=== PATIENT | female | born 1960 | race Caucasian/White ===

== ENCOUNTER 2016-11-07 11:30 | Emergency (ER) | payer BC ==
[2016-11-07 11:47] VITALS: TEMP 98.2; BMI 42.7
[2016-11-07] MEDS ORDERED: cloNIDine HCL 0.1 MG TABLET PO ONE (12:12)
[2016-11-07] MEDS ORDERED: LORazepam 1 MG TABLET PO ONE (12:13)
[2016-11-07] MEDS ORDERED: cloNIDine HCL 0.1 MG TABLET ONE (12:45)
[2016-11-07] MEDS ORDERED: LORazepam 0.5 MG TABLET ONE (12:45)
--- NOTE | 2016-11-07 14:35 | PDOC ---
History of Present Illness - General Chief Complaint: Nasal Bleeding Stated Complaint: SUDDEN NASAL BLEEDING Time Seen by Provider: 11/07/16 11:50 - History of Present Illness Initial Comments: 11/07/16 14:30 Patient is a 56-year-old female with a past medical history of hypertension presenting to the ED today with a nasal bleed. Patient states that the bleeding started at around 1100 this morning while she was in the shower. She was able to stop some bleeding with direct pressure and tissues however there was a large volume of blood and the patient became nervous and came to the emergency room. In in triage patient states that she received 4 x 4's which they packed her left nasal passage with. It was also discovered in triage that her blood pressure was 210/120. This is high for her to the patient. She states she is usually compliant with her blood pressure medication. Patient denies trauma to the nose. Denies fevers chills weight change fatigue chest pain palpitations edema shortness of breath dyspnea nausea vomiting diarrhea. Past History - Past Medical History Allergies/Adverse Reactions: Allergies Allergy/AdvReac Type Severity Reaction Status Date / Time No Known Allergies Allergy Verified 11/07/16 11:36 Home Medications: Ambulatory Orders Amlodipine Besylate [Norvasc -] 5 mg PO HS #10 tablet 11/08/16 Nebivolol HCl [Bystolic] 10 mg PO DAILY #10 tablet 11/08/16 Olmesartan Medoxomil [Benicar -] 40 mg PO HS #10 tablet 11/08/16 Anemia: Yes Dialysis: Yes HTN: Yes Suicide Attempt (Hx): No - Psycho/Social/Smoking Cessation Hx Anxiety: No Suicidal Ideation: No Smoking History: Never smoked Hx Alcohol Use: No Drug/Substance Use Hx: No Substance Use Type: None *Physical Exam - Vital Signs Last Vital Signs Temp Pulse Resp BP Pulse Ox 98.2 F 104 H 19 197/116 99 11/07/16 11:37 11/07/16 11:37 11/07/16 11:37 11/07/16 11:37 11/07/16 11:37 - Physical Exam Comments: 11/07/16 14:32 GENERAL: Well developed, well nourished. Awake and alert. No acute distress. HEENT: Normocephalic, atraumatic. PERRLA, EOMI. No conjunctival pallor. Sclera are non- icteric. Moist mucous membranes. Oropharynx shows dried blood, but no active dripping of blood. NOSE: Bright red blood present in the L nasal passage. Numerous 4x4's present in the passage. R nostril shows no blood. No pain on palpation. NECK: Supple. Full ROM. No JVD. Carotid pulses 2+ and symmetric, without bruits. No thyromegaly. No lymphadenopathy. CARDIOVASCULAR: Regular rate and rhythm. (+) systolic murmurs III/ loudest at the R second intercostal space at the base. No rubs, or gallops. Distal pulses are 2+ and symmetric. PULMONARY: No evidence of respiratory distress. Lungs clear to auscultation bilaterally. No wheezing, rales or rhonchi. ABDOMINAL: Soft. Non-tender. Non-distended. No rebound or guarding. No organomegaly. Normoactive bowel sounds. MUSCULOSKELETAL Normal range of motion at all joints. No bony deformities or tenderness. No CVA tenderness. EXTREMITIES: No cyanosis. No clubbing. No edema. No calf tenderness. SKIN: Warm and dry. Normal capillary refill. No rashes. No jaundice. NEUROLOGICAL: Alert, awake, appropriate. Cranial nerves 2-12 intact. No deficits to light touch and temperature in face, upper extremities and lower extremities. No motor deficits in the in face, upper extremities and lower extremities. Normoreflexic in the upper and lower extremities. Normal speech. Toes are down- going bilaterally. Gait is normal without ataxia. PSYCHIATRIC: Cooperative. Good eye contact. Appropriate mood and affect. ED Treatment Course - Medications Given in the ED: ED Medications Discontinued Medications Generic Name Dose Route Start Last Admin Trade Name Channing PRN Reason Stop Dose Admin Clonidine 0.1 mg 11/07/16 12:12 11/07/16 12:49 Catapres - PO 11/07/16 12:13 0.1 mg ONCE ONE Administration Lorazepam 1 mg 11/07/16 12:13 11/07/16 12:49 Ativan - PO 11/07/16 12:14 Not Given ONCE ONE Medical Decision Making - Medical Decision Making 11/07/16 11:10 Patient is a 56-year-old female with hypertension presenting to the ED today with epistaxis of her left nostril. The cause of the bleeding seems to be atraumatic. Bleeding was controlled with 4 x 4's. Direct pressure is placed over the nose with a nasal clip. Blood pressure is elevated at this time 210/ 120. We'll give 0.1mg of Catapress. We will reevaluate. 11/07/16 11:25 Patient went to the restroom to wash her face. At that time she disrupt the 4 x 4 packing. There is new fresh bright red blood from the left nostril. Reapplied pressure. At this time will provide Rhino Rocket for additional pressure. A 4.5 cm Rhino Rocket was placed in the left nostril. Sterile water was used to wet the device. It was then placed anteriorly in the left nostril. And inflated with 7 mL of air. Bleeding is controlled with the Rhino Rocket. We'll continue to monitor. 11/07/16 12:45 Catapres is now given at this time. We'll take a repeat blood pressure at half an hour. 11/07/16 13:35 Repeat blood pressure shows 168/82. Bleeding is controlled at this time. There is no blood in the posterior pharynx. Rhino Rocket is properly in place. Patient denies headache dizziness weakness. We'll discharge home at this time. Patient understands that she needs to follow with cardiology to manage her blood pressure. Also giving her a referral for ENT to have the Rhino Rocket taken out tomorrow afternoon. *DC/Admit/Observation/Transfer Diagnosis at time of Disposition: Anterior epistaxis Hypertension Qualifiers: Hypertension type: essential hypertension Qualified Code(s): I10 - Essential ( primary) hypertension - Discharge Dispostion Disposition: HOME Admit: No - Referrals Referrals: Porter Alcala MD [Staff Physician] - - Patient Instructions Printed Discharge Instructions: DI for Nosebleed Additional Instructions: You had a nosebleed of your left nostril today. Your blood pressure was also elevated today. We were able to stop the bleeding with a rhinorocket. It is normal to experience some discomfort with the placement. You may feel clots down the back of your throat. This is also normal. It should be removed Tuesday ( 11/08/16) by an ENT. Dr. Alcala is our staff ENT. His phone number is [phone]. You blood pressure was controlled today with Catapress. Call your precipitation equipment tender for additional blood pressure management this week. If you feel running blood down the back of your throat, develop new headaches, dizziness, weakness, or dislodgment of your rhinorocket, return to the ED.
[2016-11-07 15:21] VITALS: BP 157/79; PULSE 67
== END 2016-11-07 15:24 | disposition home or self-care (01) ==
LOC: JER 11:30
PROC: 2Y41X5Z Packing of Nasal Region using Packing Material (ICD-10-PCS; principal; 2016-11-07)
DX: I10 Essential (primary) hypertension (principal); R04.0 Epistaxis
CPT/HCPCS: 99282-25

== ENCOUNTER 2016-11-08 07:37 | Emergency (ER) | payer BC ==
[2016-11-08 07:46] VITALS: BMI 42.7
[2016-11-08] MEDS ORDERED: OXYMETAZOLINE 0.05% NASAL SOLUTION 15 ML BOTTLE NS ONE (08:03)
--- NOTE | 2016-11-08 08:48 | PDOC ---
History of Present Illness - General History Source: Patient, Old Records Exam Limitations: No Limitations - History of Present Illness Initial Comments: 11/08/16 08:50 The patient is a 56-year-old woman, accompanied by her mother, with a significant past medical history of hypertension(Bystolic and Benmalinir), who was in this ED, yesterday for left nasal epistaxis who presents today to the emergency department via walk-in for further evaluation of persistent symptoms. Patients symptoms started yesterday, approximately 11:00 AM, while in the shower. Initially she was able to stop her nasal bleeding, temporarily, with direct pressure, however she came to this ED for further evaluation. Upon triage , she was noted to be hypertensive (210/120). A 4.5 cm Rhino Rocket were inserted anteriorly in the left nostril and she was given Catapres with noted improvement of her blood pressure to 168/82. No bleeding was noted to the right nostril. Patient was ultimately discharged. Patient went home and reports compliance with her hypertensive medications last night, but not this morning. Patient noted that she started to bleed again from her left nostril, thus presenting to the ED. Patient expresses concern, as she has never had a nose bleed in the past. She is not on any blood thinners. No recent fevers, chills generalized weakness. No chest pain, visual changes, lightheadedness, dizziness, headache, neck pain No abdominal pain, nausea, vomiting, diarrhea. Allergies: No Known Drug Allergies Past Surgical History: None reported Social History: Retired. She denies tobacco, ETOH and recreational drug use. Primary Care Physician: Dr. Keri Fritz [phone] <Kelsey Altman - Last Filed: 11/08/16 10:23> <Reji Flores - Last Filed: 11/08/16 12:18> - General Chief Complaint: Nasal Bleeding Stated Complaint: NOSE BLEED Time Seen by Provider: 11/08/16 07:51 Past History <Kelsey Altman - Last Filed: 11/08/16 10:23> - Past Medical History Anemia: Yes Dialysis: Yes HTN: Yes Suicide Attempt (Hx): No - Psycho/Social/Smoking Cessation Hx Anxiety: No Suicidal Ideation: No Smoking History: Never smoked Have you smoked in the past 12 months: No Information on smoking cessation initiated: No Hx Alcohol Use: No Drug/Substance Use Hx: No Substance Use Type: None <Reji Flores - Last Filed: 11/08/16 12:18> - Past Medical History Allergies/Adverse Reactions: Allergies Allergy/AdvReac Type Severity Reaction Status Date / Time No Known Allergies Allergy Verified 11/08/16 07:42 Home Medications: Ambulatory Orders Amlodipine Besylate [Norvasc -] 5 mg PO HS #10 tablet 11/08/16 Nebivolol HCl [Bystolic] 10 mg PO DAILY #10 tablet 11/08/16 Olmesartan Medoxomil [Benicar -] 40 mg PO HS #10 tablet 11/08/16 Review of Systems - Review of Systems Constitutional: No: Chills, Fever HEENTM: Yes: See HPI Respiratory: No: Shortness of Breath Cardiac (ROS): No: Chest Pain, Lightheadedness, Syncope ABD/GI: No: Vomiting Neurological: No: Headache, Weakness All Other Systems: Reviewed and Negative <Sascha Floresfaele - Last Filed: 11/08/16 12:18> *Physical Exam - Vital Signs Last Vital Signs Temp Pulse Resp BP Pulse Ox 94 H 18 168/116 100 11/08/16 07:43 11/08/16 07:43 11/08/16 07:43 11/08/16 07:43 - Physical Exam Comments: 11/08/16 08:51 GENERAL: The patient is awake, alert, and fully oriented, in no acute distress. HEAD: Normal with no signs of trauma. EYES: Pupils equal, round and reactive to light, extraocular movements intact, sclera anicteric, conjunctiva clear with no pallor. ENT: Ears normal, brisk active bleeding from the left nostril. Oropharyn with some oozing. Airway is clear. Moist mucous membranes. NECK: Normal range of motion, supple without lymphadenopathy, JVD, or masses. LUNGS: Breath sounds equal, clear to auscultation bilaterally. No wheeze/ crackles. HEART: Regular rate and rhythm, normal S1 and S2 without murmur or rub. ABDOMEN: Soft/nontender/nondistended. BS wnl. No guarding or rebound. No palpable masses. No hepatosplenomegaly. EXTREMITIES: Normal range of motion, no edema. No clubbing or cyanosis. No cords, erythema, or tenderness. NEUROLOGICAL: Cranial nerves II through XII grossly intact. Normal speech. The upper extremities are 5 over 5 in all muscle groups. The lower extremities are 5 over 5 in all muscle groups. No pronator drift. Sensation is intact to light touch throughout. PSYCH: Normal mood, normal affect. SKIN: Warm, Dry, normal turgor, no rashes or lesions noted. <Kelsey Altman - Last Filed: 11/08/16 10:23> - Vital Signs Last Vital Signs Temp Pulse Resp BP Pulse Ox 94 H 18 168/116 100 11/08/16 07:43 11/08/16 07:43 11/08/16 07:43 11/08/16 07:43 <Reji Flores - Last Filed: 11/08/16 12:18> ED Treatment Course - Medications Given in the ED: ED Medications Discontinued Medications Generic Name Dose Route Start Last Admin Trade Name Freq PRN Reason Stop Dose Admin Oxymetazoline HCl 1 spray 11/08/16 08:03 11/08/16 08:20 Afrin - NS 11/08/16 08:04 1 spray ONCE ONE Administration <Kelsey Altman - Last Filed: 11/08/16 10:23> - Medications Given in the ED: ED Medications Discontinued Medications Generic Name Dose Route Start Last Admin Trade Name Freq PRN Reason Stop Dose Admin Oxymetazoline HCl 1 spray 11/08/16 08:03 11/08/16 08:20 Afrin - NS 11/08/16 08:04 1 spray ONCE ONE Administration <Reji Flores - Last Filed: 11/08/16 12:18> Medical Decision Making - Medical Decision Making 11/08/16 08:52 Case discussed with Fiberglass Machine Operator, Dr. Zaid Moya. Case was discussed. Patient will go to across the street to his office, after her blood pressure is stable. 11/08/16 09:47 A call was placed to patient's PMD, Dr. Keri Fritz at [phone]. 11/08/16 10:[address] Keri Fritz. <Kelsey Altman - Last Filed: 11/08/16 10:23> - Medical Decision Making 11/08/16 08:45 A portion of this note was documented by scribe services under my direction. I have reviewed the details of the note, within reason, and agree with the documentation with the following case summary and management plan written by me. 56-year-old female with history of hypertension, not on any anticoagulation seen here yesterday for left epistaxis requiring Rhino Rocket, found to be hypertensive at the time despite compliance with her medications, controlled with clonidine in the ED, now comes in with recurrence of epistaxis this morning. Blood pressure 168/116, vitals otherwise normal Active left-sided epistaxis, additional oozing from the right naris and slow oozing the oropharynx Area was cleansed, Afrin spray was applied to the left naris, Afrin soaked gauze packing was applied with pressure, and the bleeding was controlled 56-year-old female with persistent epistaxis in the setting of persistently elevated blood pressures, no other signs or symptoms of endorgan injury. Bleeding controlled temporarily with Afrin-soaked gauze. Discussed with Dr. Helm of ENT, will see the patient in the office for more definitive care once blood pressure is controlled Given double dose of her morning bistolic, will reassess 11/08/16 11:01 Blood pressure improved, but only slightly to 170/100 after additional dose of systolic. Added clonidine, also without change. Regarding blood pressure, discussed with Dr. Garnica, covering Dr. Fritz. Recommends changing bistolic morning dose to 40mg, continuing benicar, and adding norvasc 5mg at night. Will give dose of norvasc here and reassess. Still trying to control BP in order to refer to Dr. Moya's office for definite ENT intervention. Bleeding controlled with gauze packing, comfortable. 11/08/16 12:03 Repeat BP after norvasc 160/80. Continues to feel well, neuro intact. No active bleeding, will proceed directly to Dr. Moya's office. Will prescribe new HTN regimen, understands return criteria. <Reji Flores - Last Filed: 11/08/16 12:18> *DC/Admit/Observation/Transfer - Attestations Scribe Attestion: 11/08/16 08:51 Documentation prepared by Kelsey Altman, acting as medical research scientist for Reji Flores MD. <Kelsey Altman - Last Filed: 11/08/16 10:23> <Reji Flores - Last Filed: 11/08/16 12:18> Diagnosis at time of Disposition: Anterior epistaxis Hypertension Qualifiers: Hypertension type: essential hypertension Qualified Code(s): I10 - Essential ( primary) hypertension - Discharge Dispostion Disposition: HOME Condition at time of disposition: Improved - Prescriptions Prescriptions: Olmesartan Medoxomil [Benicar -] 40 mg PO HS #10 tablet Nebivolol HCl [Bystolic] 10 mg PO DAILY #10 tablet Amlodipine Besylate [Norvasc -] 5 mg PO HS #10 tablet - Referrals Referrals: Keri Fritz MD [Primary Care Provider] - Porter Alcala MD [Staff Physician] - - Patient Instructions Printed Discharge Instructions: DI for Nosebleed, Hypertension (Alternative Therapy) Additional Instructions: Activity as tolerated. Stay hydrated. Go directly to Dr. Alcala/Volodymyr office for further evaluation and care of your nose bleed. Your blood pressure was very elevated on the last 2 ED visits. We spoke with Dr. Garnica, a colleague of Dr. Fritz, and made the following changes to your blood pressure medications: continue taking Bistolic 10mg in the morning, TAKE BENICAR 40mg as prescribed at night, ALSO TAKE NORVASC 5mg at night as prescribed. You should follow up in Dr. Fritz's office THIS WEEK regarding today's emergency department visit. Return to the emergency department for any new or concerning symptoms, particularly persistent or worsening bleeding, persistently elevated blood pressure, headache or vision changes or chest pain or difficulty breathing or focal weakness.
[2016-11-08 09:04] VITALS: TEMP 98.8
[2016-11-08] MEDS ORDERED: cloNIDine HCL 0.1 MG TABLET PO ONE (09:35)
[2016-11-08] MEDS ORDERED: cloNIDine HCL 0.1 MG TABLET ONE (09:36)
[2016-11-08] MEDS ORDERED: amLODIPine BESYLATE 5 MG TABLET (FP) PO ONE (10:56)
[2016-11-08] MEDS ORDERED: amLODIPine BESYLATE 5 MG TABLET (FP) ONE (11:12)
[2016-11-08 12:36] VITALS: BP 167/80; PULSE 79
== END 2016-11-08 12:10 | disposition home or self-care (01) ==
LOC: JER 07:37
PROC: 0W3Q7ZZ Control Bleeding in Respiratory Tract, Via Natural or Artificial Opening (ICD-10-PCS; principal; 2016-11-08)
DX: I10 Essential (primary) hypertension (principal); R04.0 Epistaxis
CPT/HCPCS: 99282-25

== ENCOUNTER 2019-12-23 08:20 | Emergency (ER) | payer BC ==
--- NOTE | 2019-12-23 08:39 | PDOC ---
History of Present Illness - General Chief Complaint: Palpitations Stated Complaint: palpitations Time Seen by Provider: 12/23/19 08:22 History Source: Patient Exam Limitations: No Limitations - History of Present Illness Initial Comments: 12/23/19 08:36 59 y/o female with palpitations on/off for several days. Denies SOB, but feels it in chest and back occasionally. No fall or trauma. Not taking BP medication daily, No N/V/d/C. No sick contacts. Denies cough, fever or chills. Denies dysuria. Denies anxiety. On antibiotic for ear infection. Past History - Past Medical History Allergies/Adverse Reactions: Allergies Allergy/AdvReac Type Severity Reaction Status Date / Time Penicillins Allergy Verified 12/23/19 08:22 Home Medications: Ambulatory Orders Amlodipine Besylate [Norvasc -] 5 mg PO HS #10 tablet 11/08/16 Nebivolol HCl [Bystolic] 10 mg PO DAILY #10 tablet 11/08/16 Olmesartan Medoxomil [Benicar -] 40 mg PO HS #10 tablet 11/08/16 Cefdinir 300 mg PO ASDIR 12/23/19 Hydrochlorothiazide [Hctz -] 25 mg PO DAILY 12/23/19 Anemia: Yes COPD: No Dialysis: Yes HTN: Yes - Psycho Social/Smoking Cessation Hx Smoking History: Never smoked Have you smoked in the past 12 months: No Information on smoking cessation initiated: No Hx Alcohol Use: No Drug/Substance Use Hx: No Substance Use Type: None Review of Systems - Review of Systems Able to Perform ROS?: Yes Is the patient limited Iranian proficient: No Constitutional: No: Chills, Fever Respiratory: No: Cough, Shortness of Breath Cardiac (ROS): Yes: Palpitations. No: Chest Pain ABD/GI: No: Nausea, Vomiting : No: Dysuria Musculoskeletal: No: Back Pain All Other Systems: Reviewed and Negative *Physical Exam - Vital Signs Last Vital Signs Temp Pulse Resp BP Pulse Ox 98.9 F 64 20 162/90 100 12/23/19 08:21 12/23/19 09:42 12/23/19 09:42 12/23/19 09:42 12/23/19 09:42 - Physical Exam General Appearance: Yes: Nourished, Appropriately Dressed. No: Apparent Distress HEENT: positive: EOMI, JAK, Normal ENT Inspection Neck: positive: Trachea midline, Normal Thyroid, Supple. negative: Tender, Rigid Respiratory/Chest: positive: Lungs Clear, Normal Breath Sounds. negative: Chest Tender, Respiratory Distress Cardiovascular: positive: Regular Rhythm, Regular Rate, S1, S2. negative: Edema, JVD, Murmur Vascular Pulses: Femoral (R): 4+, Femoral (L): 4+, Carotid (R): 4+, Carotid (L): 4+, Dorsalis-Pedis (R): 4+, Doralis-Pedis (L): 4+ Gastrointestinal/Abdominal: positive: Normal Bowel Sounds, Flat, Soft. negative: Tender, Organomegaly, Pulsatile Mass Musculoskeletal: positive: Normal Inspection. negative: CVA Tenderness Extremity: positive: Normal Capillary Refill, Normal Inspection, Normal Range of Motion. negative: Pedal Edema, Swelling, Calf Tenderness Integumentary: positive: Normal Color, Dry, Warm Neurologic: positive: senior national account manager II-XII NML intact, Fully Oriented, Alert, Normal Moo d/Affect, Normal Response, Motor Strength 5/5 Heart Score/ECG Review - History History: Slightly suspicious - Electrocardiogram EKG: Normal - Age Age: 45-65 - Risk Factors Risk Factors Heart Score: Yes Hx Hypertension Based on the list above the patient has:: 1-2 risk factors - Troponin Troponin: </= normal limit - Score Heart Score - Total: 2 - ECG Intrepretation Rhythm: Regular Rhythm Comment:: 12/23/19 08:51 HR 69 - ST and T Early Repolarization: No Non Specific ST-T Wave changes: Yes - ECG Impressions Comment:: 12/23/19 08:52 Non specific EKG changes, no STEMI PVC ED Treatment Course - LABORATORY CBC & Chemistry Diagram: 12/23/19 08:54 12/23/19 08:40 - ADDITIONAL ORDERS Additional order review: Laboratory Results 12/23/19 12/23/19 08:40 08:40 Sodium 130 L Potassium 3.6 Chloride 93 L Carbon Dioxide 25 Anion Gap 12 BUN 40.0 H Creatinine 1.2 Est GFR (CKD-EPI)AfAm 56.49 Est GFR (CKD-EPI)NonAf 48.74 Random Glucose 113 H Calcium 9.2 Total Bilirubin 1.1 H AST 19 ALT 15 Alkaline Phosphatase 79 Troponin I < 0.03 Total Protein 7.3 Albumin 4.3 12/23/19 08:54 RBC 4.67 MCV 82.3 MCHC 33.6 RDW 13.5 MPV 9.1 Neutrophils % 86.5 H Lymphocytes % 9.7 Monocytes % 2.7 L Eosinophils % 0.4 Basophils % 0.7 12/23/19 08:39 59 y/o female with palpitations, will check labs, EKG and CXR 12/23/19 09:53 Pt is doing well, will need to follow up with Data Analyst Report Writer Labs normal. EKG and CXR reviewed Pt is in agreement with plan 12/23/19 09:56 CXR NAD enlarged heart Repeat BP 162/90 - RADIOLOGY Radiology Studies Ordered: Category Date Time Status CHEST X-RAY PORTABLE* [RAD] Stat Radiology 12/23/19 08:35 Completed Discharge - Discharge Information Problems reviewed: Yes Clinical Impression/Diagnosis: Palpitations Condition: Good Disposition: HOME - Admission No - Follow up/Referral - Patient Discharge Instructions Patient Printed Discharge Instructions: DI for Palpitations, DI for Hyponatre karina Additional Instructions: Fluids, rest Continue current medications Follow up with Data Analyst Report Writer If worsen return to ER - Post Discharge Activity
[2019-12-23 08:48] VITALS: TEMP 98.9; BMI 41.9
[2019-12-23 09:04] LABS: BASO % 0.7 % (0-2.0); EOS % 0.4 % (0-4.5); HEMATOCRIT 38.5 % (32.4-45.2); HEMOGLOBIN 12.9 GM/dl (10.7-15.3); LYMPH % 9.7 % (8-40); MCH 27.7 pg (25.7-33.7); MCHC 33.6 g/dl (32.0-36.0); MEAN CELL VOLUME 82.3 fl (80-96); MEAN PLT VOLUME 9.1 fl (7.5-11.1); MONO % 2.7 % (3.8-10.2); NEUT % 86.5 % (42.8-82.8); PLATELET COUNT 178 K/MM3 (134-434); RBC 4.67 M/mm3 (3.60-5.2); RDW 13.5 % (11.6-15.6); WHITE BLOOD COUNT 7.5 K/mm3 (4.0-10.8)
[2019-12-23 09:31] LABS: ALBUMIN 4.3 g/dl (3.4-5.0); BILIRUBIN,TOTAL 1.1 mg/dl (0.2-1); CALCIUM 9.2 mg/dl (8.5-10); CREATININE 1.2 mg/dl (0.55-1.3); POTASSIUM 3.6 mmol/L (3.5-5.1); TOT PROT 7.3 g/dl (6.4-8.2)
[2019-12-23 09:45] VITALS: BP 162/90; PULSE 64
--- NOTE | 2019-12-24 15:06 | EKG ---
Test Reason : Blood Pressure : / mmHG Vent. Rate : 069 BPM Atrial Rate : 069 BPM P-R Int : 174 ms QRS Dur : 116 ms QT Int : 426 ms P-R-T Axes : 036 058 010 degrees QTc Int : 456 ms SINUS RHYTHM WITH OCCASIONAL PREMATURE VENTRICULAR COMPLEXES NONSPECIFIC ST ABNORMALITY ABNORMAL ECG WHEN COMPARED WITH ECG OF 06-JAN-2015 11:01, PREMATURE VENTRICULAR COMPLEXES ARE NOW PRESENT Confirmed by VIN STALLWORTH, SHALA ([id number]) on 12/24/2019 3:06:22 PM Referred By: MARY SAMANIEGO Confirmed By:SHALA BANUELOS MD
== END 2019-12-23 10:08 | disposition home or self-care (01) ==
LOC: FER 08:20
DX: R00.2 Palpitations (principal)
CPT/HCPCS: 36415; 71045-TC-FY; 80053; 84484; 85025; 93005; 99285-25